=== PATIENT | female | born 1960 | race Caucasian/White ===

== ENCOUNTER 2021-09-20 06:28 | Observation (INO) | payer OTHER ==
[2021-09-20 09:12] LABS: BASO % 1.1 % (0-2.0); EOS % 3.4 % (0-4.5); HEMATOCRIT 35.3 % (32.4-45.2); HEMOGLOBIN 11.8 GM/dL (10.7-15.3); LYMPH % 30.3 % (8-40); MCH 28.3 pg (25.7-33.7); MCHC 33.5 g/dl (32.0-36.0); MEAN CELL VOLUME 84.5 fl (80-96); MEAN PLT VOLUME 8.2 fl (7.5-11.1); MONO % 6.1 % (3.8-10.2); NEUT % 59.1 % (42.8-82.8); PLATELET COUNT 333 10^3/uL (134-434); RBC 4.18 M/mm3 (3.60-5.2); RDW 14.9 % (11.6-15.6); WHITE BLOOD COUNT 7.5 K/mm3 (4.0-10.0)
[2021-09-20 09:15] LABS: INR 1.02 (0.83-1.09); PROTHROMBIN TIME (PATIENT) 11.4 SEC (9.7-13.0)
[2021-09-20 09:18] LABS: ACTIVATED PTT 35.5 SECONDS (25.2-36.5)
[2021-09-20 09:19] LABS: EPI CELLS 9 /uL (0-25.1); HYALINE CASTS 0 /uL (0-3.1); PH,URINE 5.5 (5.0-8.0); URINE APPEARANCE CLEAR; URINE BACTERIA 26 /uL (0-1359); URINE BILIRUBIN NEGATIVE (NEGATIVE); URINE COLOR YELLOW; URINE GLUCOSE (UA) NEGATIVE (NEGATIVE); URINE KETONE NEGATIVE (NEGATIVE); URINE LEUK ESTERASE TRACE (NEGATIVE); URINE NITRITE NEGATIVE (NEGATIVE); URINE PROTEIN TRACE (NEGATIVE); URINE RBC 4 /uL (0-23.9); URINE UROBILINOGEN 0.2 mg/dL (0.2-1.0); URINE WBC 22 /uL (0-25.8)
[2021-09-20 09:30] LABS: CHLORIDE 104 mmol/L (98-107); SODIUM 140 mmol/L (136-145)
[2021-09-20] MEDS ORDERED: LACTATED RINGERS SOLUTION 1,000 ML/1,000 ML INFUS.BAG IV STA (09:30)
[2021-09-20 09:32] LABS: CALCIUM 9.5 mg/dL (8.5-10.1)
[2021-09-20 09:33] LABS: ALBUMIN 3.1 g/dl (3.4-5.0); ANION GAP 9 MMOL/L (8-16); BLOOD UREA NITROGEN 12.6 mg/dL (7-18); CO2 27 mmol/L (21-32); GLUCOSE,RANDOM 135 mg/dL (74-106); LIPASE 132 U/L (73-393)
[2021-09-20 09:36] LABS: CREATININE 0.5 mg/dL (0.55-1.3); SGOT/AST 20 U/L (15-37); SGPT/ALT 37 U/L (13-61)
[2021-09-20 09:37] LABS: BILIRUBIN,TOTAL 0.3 mg/dL (0.2-1); TOT PROT 7.2 g/dl (6.4-8.2)
[2021-09-20 09:38] LABS: ALK PHOS 150 U/L (45-117)
[2021-09-20] MEDS ORDERED: ASPIRIN 81 MG CHEWABLE TABLETS PO ONE (11:26)
[2021-09-20] MEDS ORDERED: ASPIRIN 325 MG ENTERIC COATED TABLET (FP) ONE (13:03)
[2021-09-20] MEDS ORDERED: HEPARIN NA (PORCINE) 5,000 UNITS/ML 1ML VIAL ONE ×2 (16:30→21:03)
[2021-09-20] MEDS ORDERED: FAMOTIDINE 20 MG TABLET ONE (16:30)
[2021-09-20] MEDS: FAMOTIDINE 20 MG TABLET PO SCH (16:34)
[2021-09-20] MEDS: HEPARIN NA (PORCINE) 5,000 UNITS/ML 1ML VIAL SQ SCH (21:39)
[2021-09-20] MEDS: INSULIN SLIDING SCALE (NOVOLOG) 1 VIAL SQ SCH (21:40)
[2021-09-20 22:59] VITALS: BMI 39.2
[2021-09-21] MEDS: HEPARIN NA (PORCINE) 5,000 UNITS/ML 1ML VIAL SQ SCH ×3 (02:11→17:14)
[2021-09-21] MEDS: INSULIN SLIDING SCALE (NOVOLOG) 1 VIAL SQ SCH ×4 (06:32→21:44)
[2021-09-21 06:59] LABS: BASO % 0.9 % (0-2.0); EOS % 2.4 % (0-4.5); HEMOGLOBIN 11.3 GM/dL (10.7-15.3); LYMPH % 35.1 % (8-40); MCH 28.7 pg (25.7-33.7); MCHC 34.1 g/dl (32.0-36.0); MEAN CELL VOLUME 83.9 fl (80-96); MONO % 6.1 % (3.8-10.2); NEUT % 55.5 % (42.8-82.8); PLATELET COUNT 290 10^3/uL (134-434); RBC 3.93 M/mm3 (3.60-5.2); RDW 14.6 % (11.6-15.6); WHITE BLOOD COUNT 7.7 K/mm3 (4.0-10.0)
[2021-09-21 07:28] LABS: CALCIUM 8.3 mg/dL (8.5-10.1)
[2021-09-21 07:29] LABS: ALBUMIN 2.8 g/dl (3.4-5.0); BLOOD UREA NITROGEN 16.4 mg/dL (7-18)
[2021-09-21 07:32] LABS: CREATININE 0.6 mg/dL (0.55-1.3); PHOSPHOROUS 4.7 mg/dL (2.5-4.9)
[2021-09-21 07:33] LABS: BILIRUBIN,TOTAL 0.3 mg/dL (0.2-1)
[2021-09-21 07:34] LABS: TOT PROT 6.5 g/dl (6.4-8.2)
[2021-09-21] MEDS ORDERED: CHLORTHALIDONE 50 MG TABLET PO SCH ×2 (08:00→10:00)
[2021-09-21] MEDS ORDERED: PT OWN MED DRAWER 7, Y5N ONE (09:22)
[2021-09-21] MEDS: ASPIRIN COATED 81 MG TABLET.EC PO SCH (09:44)
[2021-09-21] MEDS: FAMOTIDINE 20 MG TABLET PO SCH (09:44)
[2021-09-21] MEDS: LISINOPRIL 20 MG TABLET PO SCH (09:50)
[2021-09-21] MEDS: ACETAMINOPHEN 325 MG TABLET (FP) PO PRN ×2 (11:07→21:43)
[2021-09-21] MEDS ORDERED: INSULIN (NOVOLOG) ASPART 100 UNITS/ML 10ML VIAL ONE (12:06)
[2021-09-21] MEDS: CHLORTHALIDONE 25 MG TABLET PO SCH (12:23)
[2021-09-21] MEDS ORDERED: MAGNESIUM 2GM/50ML STERILE WATER IVPB IVPB ONE (13:30)
[2021-09-21] MEDS: ATORVASTATIN CA 20 MG TABLET (FP) PO SCH (21:38)
[2021-09-21] MEDS: METOPROLOL TARTRATE 25 MG TABLET (FP) PO SCH (21:38)
[2021-09-22] MEDS: HEPARIN NA (PORCINE) 5,000 UNITS/ML 1ML VIAL SQ SCH ×3 (01:25→17:44)
[2021-09-22] MEDS: INSULIN SLIDING SCALE (NOVOLOG) 1 VIAL SQ SCH ×4 (06:31→21:30)
[2021-09-22 07:05] LABS: BASO % 0.8 % (0-2.0); EOS % 2.6 % (0-4.5); HEMATOCRIT 34.3 % (32.4-45.2); HEMOGLOBIN 11.7 GM/dL (10.7-15.3); LYMPH % 34.6 % (8-40); MCH 28.8 pg (25.7-33.7); MCHC 34.2 g/dl (32.0-36.0); MEAN CELL VOLUME 84.3 fl (80-96); MEAN PLT VOLUME 8.1 fl (7.5-11.1); MONO % 5.3 % (3.8-10.2); NEUT % 56.7 % (42.8-82.8); PLATELET COUNT 327 10^3/uL (134-434); RBC 4.07 M/mm3 (3.60-5.2); RDW 14.9 % (11.6-15.6); WHITE BLOOD COUNT 7.9 K/mm3 (4.0-10.0)
[2021-09-22 07:32] LABS: CALCIUM 8.5 mg/dL (8.5-10.1)
[2021-09-22 07:33] LABS: ALBUMIN 3.1 g/dl (3.4-5.0); BLOOD UREA NITROGEN 16.9 mg/dL (7-18); MAGNESIUM 1.4 mg/dL (1.8-2.4); PHOSPHOROUS 3.6 mg/dL (2.5-4.9)
[2021-09-22 07:35] LABS: BILIRUBIN,TOTAL 0.3 mg/dL (0.2-1)
[2021-09-22 07:37] LABS: CREATININE 0.7 mg/dL (0.55-1.3)
[2021-09-22] MEDS ORDERED: REGADENOSON 0.4 MG/5 ML PRE-FILLED SYRINGE IVPUSH ONE ×2 (09:00→10:05)
[2021-09-22] MEDS ORDERED: PT OWN MED DRAWER 7, Y5N ONE (09:19)
[2021-09-22] MEDS: METOPROLOL TARTRATE 25 MG TABLET (FP) PO SCH ×2 (09:59→21:29)
[2021-09-22] MEDS: CHLORTHALIDONE 25 MG TABLET PO SCH (09:59)
[2021-09-22] MEDS: FAMOTIDINE 20 MG TABLET PO SCH (09:59)
[2021-09-22] MEDS: LISINOPRIL 20 MG TABLET PO SCH (09:59)
[2021-09-22] MEDS: ASPIRIN COATED 81 MG TABLET.EC PO SCH (09:59)
[2021-09-22] MEDS: INSULIN (LEVEMIR) 100 UNITS/ML UNITS SQ SCH ×2 (10:03→21:30)
[2021-09-22] MEDS ORDERED: MAGNESIUM SULF 50% (8.12 MEQ/2 ML-1 GM VIAL) IVPB ONE (15:53)
[2021-09-22] MEDS ORDERED: MAGNESIUM 2GM/50ML STERILE WATER IVPB IVPB ONE (17:00)
[2021-09-22] MEDS: ATORVASTATIN CA 20 MG TABLET (FP) PO SCH (21:29)
[2021-09-22] MEDS: ACETAMINOPHEN 325 MG TABLET (FP) PO PRN (21:29)
[2021-09-23] MEDS: HEPARIN NA (PORCINE) 5,000 UNITS/ML 1ML VIAL SQ SCH ×3 (01:07→17:18)
[2021-09-23] MEDS: INSULIN (LEVEMIR) 100 UNITS/ML UNITS SQ SCH ×2 (06:24→21:00)
[2021-09-23] MEDS: INSULIN SLIDING SCALE (NOVOLOG) 1 VIAL SQ SCH ×4 (06:25→21:01)
[2021-09-23 07:54] LABS: BASO % 0.9 % (0-2.0); EOS % 3.1 % (0-4.5); HEMATOCRIT 35.5 % (32.4-45.2); HEMOGLOBIN 11.7 GM/dL (10.7-15.3); LYMPH % 33.9 % (8-40); MEAN CELL VOLUME 84.8 fl (80-96); MEAN PLT VOLUME 8.4 fl (7.5-11.1); MONO % 5.3 % (3.8-10.2); NEUT % 56.8 % (42.8-82.8); PLATELET COUNT 314 10^3/uL (134-434); RBC 4.18 M/mm3 (3.60-5.2); RDW 14.7 % (11.6-15.6); WHITE BLOOD COUNT 8.7 K/mm3 (4.0-10.0)
[2021-09-23 08:10] LABS: CALCIUM 8.6 mg/dL (8.5-10.1)
[2021-09-23 08:11] LABS: ALBUMIN 2.9 g/dl (3.4-5.0); BLOOD UREA NITROGEN 16.3 mg/dL (7-18); MAGNESIUM 1.8 mg/dL (1.8-2.4)
[2021-09-23 08:14] LABS: CREATININE 0.7 mg/dL (0.55-1.3); PHOSPHOROUS 3.8 mg/dL (2.5-4.9)
[2021-09-23 08:15] LABS: BILIRUBIN,TOTAL 0.3 mg/dL (0.2-1); TOT PROT 6.6 g/dl (6.4-8.2)
[2021-09-23] MEDS: LISINOPRIL 20 MG TABLET PO SCH (09:49)
[2021-09-23] MEDS: CHLORTHALIDONE 25 MG TABLET PO SCH (09:50)
[2021-09-23] MEDS: FAMOTIDINE 20 MG TABLET PO SCH (09:51)
[2021-09-23] MEDS: ASPIRIN COATED 81 MG TABLET.EC PO SCH (09:51)
[2021-09-23] MEDS: METOPROLOL TARTRATE 25 MG TABLET (FP) PO SCH ×2 (09:52→21:01)
[2021-09-23] MEDS: ATORVASTATIN CA 20 MG TABLET (FP) PO SCH (21:01)
[2021-09-23] MEDS: ACETAMINOPHEN 325 MG TABLET (FP) PO PRN (23:53)
[2021-09-24] MEDS: HEPARIN NA (PORCINE) 5,000 UNITS/ML 1ML VIAL SQ SCH ×3 (01:38→17:24)
[2021-09-24] MEDS: INSULIN (LEVEMIR) 100 UNITS/ML UNITS SQ SCH ×2 (06:17→21:00)
[2021-09-24] MEDS: INSULIN SLIDING SCALE (NOVOLOG) 1 VIAL SQ SCH ×4 (06:18→21:01)
[2021-09-24 08:18] LABS: BASO % 0.9 % (0-2.0); EOS % 2.1 % (0-4.5); HEMATOCRIT 37.8 % (32.4-45.2); HEMOGLOBIN 12.6 GM/dL (10.7-15.3); LYMPH % 31.4 % (8-40); MCHC 33.3 g/dl (32.0-36.0); MEAN CELL VOLUME 84.2 fl (80-96); MEAN PLT VOLUME 7.9 fl (7.5-11.1); NEUT % 60.6 % (42.8-82.8); PLATELET COUNT 312 10^3/uL (134-434); RBC 4.49 M/mm3 (3.60-5.2); RDW 14.8 % (11.6-15.6); WHITE BLOOD COUNT 7.8 K/mm3 (4.0-10.0)
[2021-09-24 08:31] LABS: CALCIUM 8.7 mg/dL (8.5-10.1)
[2021-09-24 08:32] LABS: ALBUMIN 3.1 g/dl (3.4-5.0); BLOOD UREA NITROGEN 16.1 mg/dL (7-18); MAGNESIUM 1.5 mg/dL (1.8-2.4)
[2021-09-24 08:35] LABS: CREATININE 0.6 mg/dL (0.55-1.3)
[2021-09-24 08:37] LABS: BILIRUBIN,TOTAL 0.4 mg/dL (0.2-1); TOT PROT 7.4 g/dl (6.4-8.2)
[2021-09-24] MEDS ORDERED: PT OWN MED DRAWER 7, Y5N ONE (09:56)
[2021-09-24] MEDS: ASPIRIN COATED 81 MG TABLET.EC PO SCH (10:01)
[2021-09-24] MEDS: LISINOPRIL 20 MG TABLET PO SCH (10:01)
[2021-09-24] MEDS: FAMOTIDINE 20 MG TABLET PO SCH (10:01)
[2021-09-24] MEDS: METOPROLOL TARTRATE 25 MG TABLET (FP) PO SCH ×2 (10:01→21:00)
[2021-09-24] MEDS: CHLORTHALIDONE 25 MG TABLET PO SCH (10:01)
[2021-09-24] MEDS: MAGNESIUM 1GM/D5W 100ML - 100 ML IVPB IVPB SCH ×2 (11:50→12:43)
[2021-09-24] MEDS: ATORVASTATIN CA 20 MG TABLET (FP) PO SCH (21:00)
[2021-09-24] MEDS: ACETAMINOPHEN 325 MG TABLET (FP) PO PRN (21:12)
[2021-09-25] MEDS: HEPARIN NA (PORCINE) 5,000 UNITS/ML 1ML VIAL SQ SCH ×2 (01:01→09:18)
[2021-09-25 05:33] VITALS: BP 120/64; PULSE 65; TEMP 97.9
[2021-09-25] MEDS: INSULIN (LEVEMIR) 100 UNITS/ML UNITS SQ SCH (06:01)
[2021-09-25] MEDS: INSULIN SLIDING SCALE (NOVOLOG) 1 VIAL SQ SCH ×2 (06:02→11:16)
[2021-09-25 08:23] LABS: CALCIUM 8.8 mg/dL (8.5-10.1)
[2021-09-25 08:24] LABS: BLOOD UREA NITROGEN 17.2 mg/dL (7-18)
[2021-09-25 08:27] LABS: CREATININE 0.7 mg/dL (0.55-1.3)
[2021-09-25] MEDS: FAMOTIDINE 20 MG TABLET PO SCH (09:17)
[2021-09-25] MEDS: METOPROLOL TARTRATE 25 MG TABLET (FP) PO SCH (09:18)
[2021-09-25] MEDS: LISINOPRIL 20 MG TABLET PO SCH (09:18)
[2021-09-25] MEDS: ASPIRIN COATED 81 MG TABLET.EC PO SCH (09:19)
[2021-09-25] MEDS: CHLORTHALIDONE 25 MG TABLET PO SCH (09:22)
== END 2021-09-25 09:00 | disposition short-term general hospital (02) ==
LOC: JER 06:28 → JERBED 07:54 → J4W 22:36
PROVIDERS: ADMIT Internal Medicine
CPT/HCPCS: 36415; 71046-TC-FY; 71101-TC-RT-FY; 71275-TC; 78452-TC; 80048; 80053; 81003; 82550; 82962; 83690; 83735; 84100; 84484; 85025; 85379; 85610; 85730; 87086; 93005; 93010; 93017; 93306-TC; 99285-25; A9502; C9803; G0378; J1644; J2785; Q9967; U0003; U0005